=== PATIENT | male | born 1975 | race Caucasian/White ===

== ENCOUNTER 2021-06-08 16:07 | Emergency (ER) | payer BC ==
[~2021-06-08] VITALS: Ht 175.3 cm; Wt 90.7 kg
--- NOTE | 2021-06-08 16:28 | NUR ---
pending MD evaluation@this time
--- NOTE | 2021-06-08 16:51 | NUR ---
Patient is not found in the 2A room or waiting room.
--- NOTE | 2021-06-08 17:10 | NUR ---
Pt eloped before seen by .
== END 2021-06-08 17:13 | disposition left against medical advice (07) ==
LOC: ER 16:10
DX: Z53.21 Procedure and treatment not carried out due to patient leaving prior to being seen by health care provider (principal)